=== PATIENT | male | born 1955 | race African-American/Black ===

== ENCOUNTER 2018-05-26 12:37 | Emergency (ER) | payer MEDICARE, OTHER ==
[2018-05-26] MEDS ORDERED: HYDRALAZINE HCL INJ/PF 20 MG/1 ML SDV IV ONE (13:57)
--- NOTE | 2018-05-26 13:58 | ER Document Report ---
ED Headache - General Mode of Arrival: Ambulatory Information source: Patient TRAVEL OUTSIDE OF THE [place] IN LAST 30 DAYS: No <CLIF DUARTE - Last Filed: 05/26/18 14:25> <BENJA GAMEZ - Last Filed: 05/26/18 18:27> - General Chief Complaint: Headache Stated Complaint: HEADACHE Time Seen by Provider: 05/26/18 13:48 Notes: Patient is a 63-year-old male with HTN, type 2 diabetes, hyperlipidemia presents to the emergency department complaining of a right frontal headache onset 3 days ago. Patient states the headache is intermittent and he also complains of audio and photosensitivity. Patient states that he took Tylenol but is has not provided him any relief. He states this is very unusual for him due to not usually developing headaches. Patient's PCP is Dr. Garrido. Patient is currently prescribed Atorvastatin (40mg twice a day), Spironlactone (25 mg once a day), Tradjenta (5 mg once a day) and Metformin(150 mg twice a day). (CLIF DUARTE) - Related Data Allergies/Adverse Reactions: No Known Allergies Allergy (Verified 05/26/18 12:48) Past Medical History - General Information source: Patient - Social History Smoking Status: Former Smoker Frequency of alcohol use: None Drug Abuse: None Family History: Reviewed & Not Pertinent Patient has suicidal ideation: No Patient has homicidal ideation: No - Past Medical History Cardiac Medical History: Reports: Hx Heart Attack, Hx Hypercholesterolemia, Hx Hypertension Endocrine Medical History: Reports: Hx Diabetes Mellitus Type 2 Past Surgical History: Reports: Hx Cardiac Catheterization - stentx1 - Immunizations Hx Diphtheria, Pertussis, Tetanus Vaccination: Yes <CLIF DUARTE - Last Filed: 05/26/18 14:25> Review of Systems - Review of Systems Constitutional: No symptoms reported EENT: No symptoms reported Cardiovascular: No symptoms reported Respiratory: No symptoms reported Gastrointestinal: No symptoms reported Genitourinary: No symptoms reported Male Genitourinary: No symptoms reported Musculoskeletal: No symptoms reported Skin: No symptoms reported Hematologic/Lymphatic: No symptoms reported Neurological/Psychological: See HPI, Headaches -: Yes All other systems reviewed and negative <CLIF DUARTE - Last Filed: 05/26/18 14:25> Physical Exam <CLIF DUARTE - Last Filed: 05/26/18 14:25> <BENJA GAMEZ - Last Filed: 05/26/18 18:27> - Vital signs Vitals: Temp Pulse Resp BP Pulse Ox 98.4 F 72 18 197/93 H 95 05/26/18 13:02 05/26/18 13:02 05/26/18 13:02 05/26/18 13:02 05/26/18 13:02 - Notes Notes: GENERAL: Alert, interacts well. No acute distress. Blood pressure elevated at 203/100. HEAD: Normocephalic, atraumatic. No tenderness to palpation. EYES: Pupils equal, round, and reactive to light. Extraocular movements intact. ENT: Oral mucosa moist, tongue midline. NECK: Full range of motion. Supple. Trachea midline. No bruits. No posterior cervical muscles tenderness to palpation. LUNGS: Clear to auscultation bilaterally, no wheezes, rales, or rhonchi. No respiratory distress. HEART: Regular rate and rhythm. No murmurs, gallops, or rubs. ABDOMEN: Soft, non-tender. Non-distended. Bowel sounds present in all 4 quadrants. EXTREMITIES: Moves all 4 extremities spontaneously. NEUROLOGICAL: Alert and oriented x3. Normal speech. PSYCH: Normal affect, normal mood. SKIN: Warm, dry, normal turgor. No rashes or lesions noted. (CLIF DUARTE) Course <FELICIADEYVIVIRGIL - Last Filed: 05/26/18 14:25> - Diagnostic Test Radiology reviewed: Image reviewed, Reports reviewed - CT scan of the head report is no acute findings. Paranasal sinus disease. <BENJA GAMEZ - Last Filed: 05/26/18 18:27> - Re-evaluation Re-evalutation: 05/26/18 16:41 45 minutes after the patient received the IV Benadryl, Compazine, and Toradol, he states his headache has not really changed much. His blood pressure is about 155 systolic at this time. His neck remains supple with no change in headache on placing chin on chest. 05/26/18 18:14 The patient has headache is gone at this time. His blood pressure is 160/77. He takes his losartan in the morning. I will give him an additional dose of his losartan 50 mg now. He will follow-up with his primary care provider tomorrow to discuss his blood pressure. He does not have a functioning blood pressure cuff at home, so there is no way to know if the medication changes that were made when he was changed from 160 mg valsartan dose to a 50 mg losartan dose, that it did control his blood pressure. (BENJA GAMEZ) - Vital Signs Vital signs: Temp Pulse Resp BP Pulse Ox 98.4 F 72 22 H 147/78 H 96 05/26/18 13:02 05/26/18 13:02 05/26/18 17:01 05/26/18 17:01 05/26/18 17:01 - Laboratory Laboratory results interpreted by me: 05/26/18 13:23 POC Glucose 155 H Discharge <CLIF DUARTE - Last Filed: 05/26/18 14:25> <BENJA GAMEZ - Last Filed: 05/26/18 18:27> - Discharge Clinical Impression: Headache in front of head High blood pressure Qualifiers: Hypertension type: essential hypertension Qualified Code(s): I10 - Essential ( primary) hypertension Condition: Stable Disposition: HOME, SELF-CARE Additional Instructions: Headache: The physician does not feel that the headache you are experiencing has a serious underlying cause. Most headaches are due to emotional stress, with resultant muscle tension (tension headache). Occasionally, headaches are secondary to changes in the blood vessels of the scalp (vascular headache and migraine headache). Sometimes, a headache is the first symptom of another developing illness, such as a viral infection. You have no evidence of stroke, bleeding, meningitis, or other serious cause of your headache. The treatment of headaches varies with the severity and cause of the pain. Not all headaches need pain shots. In fact, there is evidence that using narcotics for headaches may make them worse in the long run. The physician will determine the therapy that's in your best interest. If you develop a fever, if the headache is different from any you've previously experienced, or if the headache progressively worsens, then call your physician at once or go to the emergency room. High Blood Pressure: When your blood pressure was taken today it was elevated. Today's reading was 197/93. Take Tylenol for your headache if needed this evening. Check your blood pressure at home regularly. Follow-up with Dr. Garrido in the office tomorrow to review your ER visit tonight and your blood pressure control. RETURN TO THE EMERGENCY ROOM IF ANY NEW OR WORSENING SYMPTOMS. Referrals: BRYANT GARRIDO MD [Primary Care Provider] - Follow up tomorrow Scribe Attestation: 05/26/18 15:46 I personally performed the services described in the documentation, reviewed and edited the documentation which was dictated to the scribe in my presence, and it accurately records my words and actions. (BENJA GAMEZ) Scribe Documentation - Scribe Written by Love:: Love Richardson, 05/26/2018 14:03 acting as scribe for :: Urbano <CLIF DUARTE - Last Filed: 05/26/18 14:25>
--- NOTE | 2018-05-26 14:46 | RADIOLOGY REPORT (SQ) ---
EXAM DESCRIPTION: CT HEAD WITHOUT COMPLETED DATE/TIME: 05/26/2018 2:29 pm REASON FOR STUDY: High BP, right frontal headache times 3 days COMPARISON: None. TECHNIQUE: Axial images acquired through the brain without intravenous contrast. Images reviewed wi th bone, brain and subdural windows. Additional sagittal and coronal reconstructions were generated. Images stored on PACS. All CT scanners at this facility use dose modulation, iterative reconstruction, and/or weight based d osing when appropriate to reduce radiation dose to as low as reasonably achievable (ALARA). [facility]: Dose Right [facility]: CareDose [facility]: Dose Right [facility]: Teradose 4D [facility]: Smart [employer] RADIATION DOSE: CT Rad equipment meets quality standard of care and radiation dose reduction techniq ues were employed. CTDIvol: 53.2 mGy. DLP: 1124 mGy-cm. mGy. LIMITATIONS: None. FINDINGS: VENTRICLES: Normal size and contour. CEREBRUM: No masses. No hemorrhage. No midline shift. No evidence for acute infarction. Normal gra y/white matter differentiation. No areas of low density in the white matter. CEREBELLUM: No masses. No hemorrhage. No alteration of density. No evidence for acute infarction. EXTRAAXIAL SPACES: No fluid collections. No masses. ORBITS AND GLOBE: No intra- or extraconal masses. Normal contour of globe without masses. CALVARIUM: No fracture. PARANASAL SINUSES: Mucoperiosteal thickening of the sphenoid sinus, left maxillary sinus and ethmoid air cells. SOFT TISSUES: No mass or hematoma. OTHER: No other significant finding. IMPRESSION: 1. No acute intracranial findings. 2. Paranasal sinus disease. EVIDENCE OF ACUTE STROKE: NO. COMMENT: Quality ID # [id number]: Final reports with documentation of one or more dose reduction techniques (e.g., Automated exposure control, adjustment of the mA and/or kV according to patient size, use of iterative reconstruction technique) TECHNICAL DOCUMENTATION: JOB ID: [id number] [employer]- All Rights Reserved Reading location - IP/workstation name: [email or web address]
[2018-05-26] MEDS ORDERED: NORMAL SALINE 1000 ML 1,000 ML IV ONE (15:45)
[2018-05-26] MEDS ORDERED: PROCHLORPERAZINE EDISYLATE INJ 10 MG/2 ML VIAL IV ONE (15:45)
[2018-05-26] MEDS ORDERED: DIPHENHYDRAMINE HCL 50 MG/ML VIAL IV ONE (15:45)
[2018-05-26] MEDS ORDERED: KETOROLAC TROMETHAMINE INJ/PF 30 MG/1 ML SDV IV ONE (15:45)
[2018-05-26] MEDS ORDERED: MORPHINE SULFATE 10 MG/ML INJ IV ONE (16:42)
[2018-05-26] MEDS: MAGNESIUM SULFATE/D5W 1 GM/100 ML RTUPB IV SCH ×2 (17:14→18:24)
[2018-05-26] MEDS ORDERED: LOSARTAN POTASSIUM 50 MG TABLET PO ONE (18:16)
[2018-05-26 20:13] VITALS: BP 166/87
== END 2018-05-26 20:13 | disposition home or self-care (01) ==
LOC: ER 12:37
DX: I10 Essential (primary) hypertension (principal); R51 Headache; E11.9 Type 2 diabetes mellitus without complications; H53.149 Visual discomfort, unspecified; Z95.5 Presence of coronary angioplasty implant and graft; Z79.899 Other long term (current) drug therapy; Z79.84 Long term (current) use of oral hypoglycemic drugs
CPT/HCPCS: 82962; 70450; A9270; J1200; J0360; J1885; J2270; J3475; J0780; J7030; 96361; 96365; 96366; 96375; 99284